=== PATIENT | female | born 1965 | race Caucasian/White ===

== ENCOUNTER 2020-04-07 06:12 | Day surgery (SDC) | payer OTHER ==
[~2020-04-07] VITALS: Ht 167.6 cm; Wt 82.2 kg
[~2020-04-07 06:12] MED LIST: ACET500 PO; HYDPAM50 PO; IBUP200 PO; LISI20 PO; PRAV20 PO
--- NOTE | 2020-04-07 08:21 | NUR ---
04/07/20 0821 Esther Ackerman PT HAS AN IODINE ALLERGY. DR CHAPMAN AND DR MAGAÑA ARE BOTH AWARE. IODINE DRAPE WAS USED ON SURGICAL LEG FOR SURGERY.
--- NOTE | 2020-04-07 14:31 | NUR ---
therapy: PT AMBULATING IN HALLWAY WITH THERAPY. PAIN AT TOLERABLE LEVEL. WILL CONT TO MONITOR.
--- NOTE | 2020-04-07 18:30 | NUR ---
PT HAS BEEN STABLE POST OP. HYPERSTENSIVE AT TIMES. PT ABLE TO WORK WELL WITH THERAPY AND STAFF TO AMBULATE AND SIT IN CHAIR. PT PAIN CONTROLLED WITH SCHEDULED AND PRN MEDS. PT FRANCK DIET AND VOIDING WELL. SL IV. PAS, TEDS AND POLAR PACK IN PLACE. [facility]. PLAN FOR STAIRS AND CAR TRANSFER PRACTICE TOMORROW AND PROBABLE DC HOME. SISTER AT BEDSIDE FOR SUPPORT.
[2020-04-08 06:00] LABS: BASOPHILS ABSOLUTE AUTO 0.01 K/mm3 (0.00-0.23); BASOPHILS PERCENT AUTO 0 % (0-2); EOSINOPHILS ABSOLUTE AUTO 0.01 K/mm3 (0.00-0.68); EOSINOPHILS PERCENT AUTO 0 % (0-6); Hematocrit 27.9 % (33.0-51.0); Hemoglobin 9.2 g/dL (11.5-16.0); IMMATURE GRAN ABSOLUTE AUTO 0.06 K/mm3 (0.00-0.10); IMMATURE GRAN PERCENT AUTO 1 % (0-1); LYMPHOCYTES ABSOLUTE AUTO 0.97 K/mm3 (0.84-5.20); LYMPHOCYTES PERCENT AUTO 9 % (21-46); MONOCYTES ABSOLUTE AUTO 0.69 K/mm3 (0.16-1.47); MONOCYTES PERCENT AUTO 7 % (4-13); Mean Corpuscular HGB 32.2 pg (26.0-34.0); Mean Corpuscular Volume 98 fL (80-100); Mean Platelet Volume 9.3 fL (9.1-12.4); NEUTROPHILS PERCENT AUTO 84 % (41-73); Platelet Count 150 K/mm3 (150-400); RDW Coefficient Variation 13.2 % (11.7-14.2); RDW Standard Deviation 46.7 fL (35.1-46.3); Red Blood Cell Count 2.86 M/mm3 (3.80-5.20); White Blood Cell Count 10.54 K/mm3 (4.00-11.30)
[2020-04-08 06:24] LABS: Bun/Creatinine Ratio 19.1 (12.0-20.0); Creatinine, Blood 1.1 mg/dL (0.40-1.00); Magnesium, Blood 1.9 mg/dL (1.6-2.4)
--- NOTE | 2020-04-08 06:51 | NUR ---
SHIFT SUMMARY LYIING SEMI FOWLERS WITH EYES CLOSED. NO SIGNIFICANT CHANGES SINCE START OF SHIFT, HAS RESTED WELL. PAIN MANAGED WITH PRN PO MEDS. ABLE TO ASSSIST WITH TURNING AND CARE. CONTINENT OF BOWEL AND BLADDER, AMBULATES TO COMMODE WITH STANDBY ASSISTANCE, FWW, AND GAIT BELT. DENIES FURTHER PAIN, DISCOMFORT, OR NEEDS AT THIS TIME. SAFETY MEASURES IN PLACE. WILL CONTINUE TO MONITOR AND GIVE HAND OFF TO ONCOMING SHIFT USING SBAR.
[2020-04-08] MEDS ORDERED: ASPI81CH PO (09:08)
[2020-04-08] MEDS ORDERED: OXYC5 PO (09:09)
--- NOTE | 2020-04-08 09:50 | NUR ---
DISCHARGE PT HAS DONE WELL TODAY. PAIN WELL MANAGED. EATING, DRINKING, & VOIDING. CLEARED THERAPY. SCRIPT, DRSGS, & POLAR PACK SENT. ESCORTED OUT VIA W/C.
== END 2020-04-08 09:50 | disposition home or self-care (01) ==
LOC: ORSCMMR 06:12 → ORD 07:30 → SURS 11:23 → ORSCMMR 04-08 09:50
PROVIDERS: Orthopaedic Surgery
PROC: 0SRB0J9 Replacement of Left Hip Joint with Synthetic Substitute, Cemented, Open Approach (ICD-10-PCS; principal; 2020-04-07 07:30)
DX: M16.12 Unilateral primary osteoarthritis, left hip (principal); Z23 Encounter for immunization; I10 Essential (primary) hypertension; Z87.891 Personal history of nicotine dependence; Z79.899 Other long term (current) drug therapy
CPT/HCPCS: 36415; 72170; 80048; 83735; 85025; 88300; 97110; 97116; 97161; 97530; A9270; A9270-GY; C1713; C1776; J0171; J0690; J0735; J1100; J1885; J2250; J2405; J2704; J2795; J3010; J7120; Q0163; Q2038

== ENCOUNTER → 2022-01-01 | Outpatient (CLI) | payer OTHER ==
[~2022-01-01] MED LIST changes: +ASPI81CH PO; +OXYC5 PO
[2022-01-01 11:01] LABS: Source, Urine Clean Catch
[2022-01-01 13:54] LABS: Appearance, Urine Clear (Clear); Bilirubin, Urine Neg (Neg); Blood, Urine Neg (Neg); Color, Urine Yellow (P-Yellow); Glucose Qualitative, Urine Neg (Neg); Ketones, Urine Neg (Neg); Leukocyte Esterase, Urine Neg (Neg); Nitrite, Urine Neg (Neg); Protein, Urine Neg (Neg); Specific Gravity, Urine 1.015 (1.003-1.022); Urobilinogen, Urine NORM (Normal)
[2022-01-01 13:56] LABS: Stool Occult Bld Immuno 1 Negative (NEGATIVE)
== END | disposition home or self-care (01) ==
LOC: LAB SHORT 07:50 → LAB 07:50
PROVIDERS: Family Medicine
DX: R10.9 Unspecified abdominal pain (principal)
CPT/HCPCS: 81003; 82274; 87338

== ENCOUNTER 2023-11-15 10:32 | Emergency (ER) | payer SELFPAY ==
[~2023-11-15] VITALS: Ht 170.2 cm; Wt 79.4 kg
[2023-11-15 10:54] VITALS: BP 181/106
[2023-11-15] MEDS ORDERED: Lidocaine 4% 1 Patch TOP ONE (12:05)
[2023-11-15] MEDS ORDERED: Ketorolac Tromethamine 30mg Vial IM ONE (12:05)
[2023-11-15] MEDS ORDERED: IBUP800 PO (12:07)
[2023-11-15] MEDS ORDERED: Robaxin750 MG PO (12:07)
[2023-11-15] MEDS ORDERED: LIDO700A20 TOP (12:07)
== END 2023-11-15 12:36 | disposition home or self-care (01) ==
LOC: ER 10:32
DX: S39.012A Strain of muscle, fascia and tendon of lower back, initial encounter (principal); X58.XXXA Exposure to other specified factors, initial encounter; Z88.8 Allergy status to other drugs, medicaments and biological substances; Z79.82 Long term (current) use of aspirin; Z79.899 Other long term (current) drug therapy; Z91.040 Latex allergy status
CPT/HCPCS: 96372; 99283-25; A9270; J1885

== ENCOUNTER 2023-11-22 10:34 | Emergency (ER) | payer SELFPAY ==
[~2023-11-22] VITALS: Ht 170.2 cm; Wt 77.1 kg
[~2023-11-22 10:34] MED LIST changes: +IBUP800 PO; +LIDO700A20 TOP; +Robaxin750 MG PO
[2023-11-22] MEDS ORDERED: Acetaminophen 500 MG Tab PO ONE (11:30)
[2023-11-22] MEDS ORDERED: Ketorolac Tromethamine 30mg Vial IM ONE (11:30)
[2023-11-22] MEDS ORDERED: Cyclobenzaprine HCl 10 MG Tab PO ONE (11:30)
[2023-11-22] MEDS ORDERED: NEURONTIN PO (13:05)
[2023-11-22 13:12] VITALS: BP 172/98
== END 2023-11-22 13:15 | disposition home or self-care (01) ==
LOC: ER 10:34
DX: M54.10 Radiculopathy, site unspecified (principal); Z79.82 Long term (current) use of aspirin; Z79.899 Other long term (current) drug therapy; Z88.8 Allergy status to other drugs, medicaments and biological substances; Z91.040 Latex allergy status
CPT/HCPCS: 96372; 99283-25; A9270; J1885

== ENCOUNTER 2024-08-19 23:03 | Emergency (ER) | payer OTHER ==
[~2024-08-19] VITALS: Ht 165.1 cm; Wt 83.9 kg
[~2024-08-19 23:03] MED LIST changes: +NEURONTIN PO
[2024-08-19] MEDS ORDERED: Morphine Sulfate 4 MG/1 ML Injection IV ONE (23:25)
[2024-08-20] MEDS ORDERED: Morphine Sulfate 4 MG/1 ML Injection IV ONE (00:50)
[2024-08-20] MEDS ORDERED: HYDROmorphone HCl/Pf 1MG SYR IV ONE (01:00)
[2024-08-20 01:49] VITALS: BP 125/74
== END 2024-08-20 01:53 | disposition home or self-care (01) ==
LOC: ER 23:03
DX: S43.014A Anterior dislocation of right humerus, initial encounter (principal); I10 Essential (primary) hypertension; E78.5 Hyperlipidemia, unspecified; F17.200 Nicotine dependence, unspecified, uncomplicated; Z88.8 Allergy status to other drugs, medicaments and biological substances; Z91.040 Latex allergy status; Z79.899 Other long term (current) drug therapy; Z79.82 Long term (current) use of aspirin
CPT/HCPCS: 23650; 73030; 73060; 96374-59; 96375; 99284-25; J1171; J2270